=== PATIENT | male | born 1990 | race Caucasian/White ===

== ENCOUNTER 2017-09-11 16:39 | Emergency (ER) | payer OTHER ==
--- NOTE | 2017-09-11 17:11 | EDPHY ---
H & P Smoking Status: Current every day smoker Time Seen by Provider: 09/11/17 16:48 HPI/ROS: CHIEF COMPLAINT: Fall, right wrist injury HISTORY OF PRESENT ILLNESS: 27-year-old male presents to the emergency department after he fell at work just prior to arrival. The patient was walking across a plank that was about 4 ft off the ground had he lost his balance and fell onto his right side injuring his right wrist. He sustained abrasions. He hit the right side of his head. No loss of consciousness. Complains of severe pain in his right wrist especially with movement. Denies pain in the right elbow or shoulder. Denies pain in his chest or difficulty breathing. Denies abdominal pain. Denies neck or back pain. Denies paresthesias in his upper or lower extremities. REVIEW OF SYSTEMS: Constitutional: No fever, no chills. Eyes: No double or blurry vision. ENT: No sore throat. Respiratory: No cough, no shortness of breath. Cardiac: No chest pain. Gastrointestinal: No abdominal pain, vomiting or diarrhea. Genitourinary: No dysuria. Musculoskeletal: Right wrist injury as above. No neck or back pain. Skin: Abrasions. No rashes. Neurological: No headache. (Alem Saba) Past Medical/Surgical History: Negative (Alem Saba) Social History: , works in construction (Alem Saba) Physical Exam: General Appearance: Alert, no distress. Mentating normally and answering questions appropriately. Superficial abrasion to the right lateral aspect of the forehead. Eyes: Pupils equal and round. Extraocular motions are all intact. ENT: Mouth: Mucous membranes moist. No dental injury or malocclusion. Respiratory: No wheezing, rhonchi, or rales, lungs are clear to auscultation. Cardiovascular: Regular rate and rhythm. Gastrointestinal: Abdomen is soft and nontender, no masses, no rebound or guarding, bowel sounds normal. Neurological: Alert and oriented x 3, cranial nerves II through XII grossly intact Skin: Superficial abrasions to the lateral aspect of the right shoulder and anterior aspect of the right upper chest. Warm and dry, no rashes. Musculoskeletal: Nontender to palpate along the cervical, thoracic or lumbar spine. Neck is supple. Extremities: Obvious deformity noted to the right wrist. Strong radial pulse at the right wrist. Normal sensation to light touch with normal 2 point discrimination. Nontender to palpate the right elbow or shoulder. Full range of motion of the left upper extremity and lower extremities bilaterally. Psychiatric: Patient is oriented X 3, there is no agitation. (Alem Saba) Constitutional: Initial Vital Signs Temperature (C) 36.7 C 09/11/17 16:42 Heart Rate 80 09/11/17 16:42 Respiratory Rate 16 09/11/17 16:42 Blood Pressure 128/66 H 09/11/17 16:42 O2 Sat (%) 95 09/11/17 16:42 O2 Delivery Mode [Post Non-Rebreather Mask Procedure 2nd] O2 Delivery Mode [Post Non-Rebreather Mask Procedure 1st] O2 Delivery Mode [Procedural Non-Rebreather Mask 2nd] O2 Delivery Mode [Procedural Non-Rebreather Mask 1st] O2 Delivery Mode [.Immediate Non-Rebreather Mask Pre-Procedure] O2 Delivery Mode Room Air O2 (L/minute) [Post Procedure 15 2nd] O2 (L/minute) [Post Procedure 15 1st] O2 (L/minute) [Procedural 2nd] 15 O2 (L/minute) [Procedural 1st] 15 O2 (L/minute) [.Immediate Pre- 15 Procedure] O2 (L/minute) 15 Allergies/Adverse Reactions: No Known Allergies Allergy (Unverified 09/11/17 16:45) Home Medications: Medication Instructions Recorded oxyCODONE/APAP 5/325 [Percocet 1 - 2 tab PO Q4-6PRN PRN #11 tab 09/11/17 5/325] Medical Decision Making - Diagnostics Imaging: I viewed and interpreted images myself - Diagnostics Imaging Results: Imaging Impressions Wrist X-Ray 09/11/17 16:48 Impression: Moderately comminuted intra-articular fracture of the distal radius with dorsal angulation. Wrist X-Ray 09/11/17 17:43 Impression: Status post closed reduction and interim casting with anatomic realignment of the previously-noted distal radial intra-articular fracture. Procedures: Procedure: Procedural sedation. Indication: Fracture reduction. A pre-sedation evaluation was completed on the patient just prior to the procedure. Patient is an appropriate candidate for procedural sedation with a normal 3-3-2 rule assessment and a Mallampati airway score of class 1. The risks of the sedation were discussed including but not limited to dysrhythmia, need for airway intervention or general anesthesia, disability, ; and verbal consent obtained. A timeout was observed and patient's identity confirmed. The patient was sedated with ketamine and propofol. The patient was monitored with continuous pulse oximetry, capnography, and quality assurance monitor chassis. There were no complications and no significant hypoxemia. I remained at the bedside for the sedation. The total time I spent in the procedural sedation was 16 minutes. Fracture reduction: The patient's fracture was reduced with traction and direct reduction. C-arm used to confirm placement. Procedure: Splint placement. A sugar-tong splint was applied. After application of the splint I returned and re-examined the patient. The splint was adequately immobilizing the joint and distal to the splint the patient's circulation and sensation was intact. ( Taye Barbosa) ED Course/Re-evaluation: 27-year-old male presents to the emergency department with a right wrist injury. X-rays reveal comminuted displaced and angulated distal radius fracture. Procedural sedation and reduction performed by Dr. Taye Barbosa. See procedure note. Patient was placed in sugar-tong splint and sling and examined post application in good placement with normal [employer] HAND. Patient was given orthopedic referral. (Alem Saba) Differential Diagnosis: Including but not limited to fracture, dislocation, contusion, sprain Head injury including but not limited to concussion, skull fracture, intraparenchymal contusion, subarachnoid, subdural and epidural hematoma. (Alem Saba) - Data Points Medications Given: Discontinued Medications Sodium Chloride (Ns) 1,000 mls @ 0 mls/hr IV ONCE ONE PRN Reason: Wide Open Stop: 09/11/17 17:38 Last Admin: 09/11/17 17:39 Dose: 1,000 mls Ketamine HCl (Ketamine) 80 mg IV EDNOW ONE Stop: 09/11/17 17:39 Last Admin: 09/11/17 17:40 Dose: 80 mg Propofol (Diprivan) 40 mg IVP EDNOW ONE Stop: 09/11/17 17:38 Last Admin: 09/11/17 17:39 Dose: 40 mg Departure - Departure Disposition: Home, Routine, Self-Care Clinical Impression: Right wrist fracture Qualifiers: Encounter type: initial encounter Fracture type: closed Qualified Code(s): S62.101A - Fracture of unspecified carpal bone, right wrist, initial encounter for closed fracture Condition: Fair Instructions: Wrist Fracture in Adults (ED) Additional Instructions: Percocet for severe pain as directed. Ibuprofen 600 mg every 8 hr as needed for pain. Ice and elevate to help reduce swelling. Sling for comfort and support. Follow up with orthopedic surgeon this week to recheck. Return to the emergency department if he developed numbness or tingling in your fingers, increasing pain, or if any other concerns. Referrals: Dionna Wise MD [Medical Doctor] - 1-2 days without fail (Orthopedic hand surgeon on-call) Prescriptions: oxyCODONE/APAP 5/325 [Percocet 5/325] 1 - 2 tab PO Q4-6PRN PRN #11 tab PRN Reason: For Moderate To Severe Pain
[2017-09-11] MEDS ORDERED: KETAMINE 200 MG/20 ML VIAL ONE (17:20)
[2017-09-11] MEDS ORDERED: PROPOFOL 200 MG/20 ML VIAL ONE (17:20)
[2017-09-11] MEDS ORDERED: NS 1,000 ML IV ONE (17:37)
[2017-09-11] MEDS ORDERED: PROPOFOL 200 MG/20 ML VIAL IVP ONE (17:37)
[2017-09-11] MEDS ORDERED: KETAMINE 500 MG/10 ML VIAL IV ONE (17:38)
[2017-09-11 19:00] VITALS: BP 134/78
== END 2017-09-11 18:40 | disposition home or self-care (01) ==
PROC: 0PSHXZZ Reposition Right Radius, External Approach (ICD-10-PCS; principal; 2017-09-11)
DX: S52.571A Other intraarticular fracture of lower end of right radius, initial encounter for closed fracture (principal); F17.200 Nicotine dependence, unspecified, uncomplicated; W17.89XA Other fall from one level to another, initial encounter; Y92.89 Other specified places as the place of occurrence of the external cause; Y99.0 Civilian activity done for income or pay; Y93.01 Activity, walking, marching and hiking
CPT/HCPCS: J2704